=== PATIENT | male | born 1990 | race Caucasian/White ===

== ENCOUNTER 2020-03-02 09:56 | Outpatient (CLI) | payer OTHER, SELFPAY ==
[2020-03-02 10:41] LABS: SARS-CoV-2 Ag Negative (Negative)
== END 2020-03-02 09:57 | disposition home or self-care (01) ==
LOC: CHSLAB 10:02
PROVIDERS: Visit Provider Pathology Anatomic Pathology & Clinical Pathology
DX: Z20.828 Contact with and (suspected) exposure to other viral communicable diseases (principal)
CPT/HCPCS: 87426